=== PATIENT | female | born 1945 | race Caucasian/White ===

== ENCOUNTER 2024-11-10 09:56 | Outpatient (CLI) | payer MEDICARE, BC | END 2024-11-10 09:57 | disposition home or self-care (01) | LOC: SCSRAD 09:56 | PROVIDERS: ATTEND Student in an Organized Health Care Education/Training Program | DX: R05.3 Chronic cough (principal) | CPT/HCPCS: 71046 ==

== ENCOUNTER 2025-06-15 14:33 | Outpatient (CLI) | payer MEDICARE, BC | END 2025-06-15 14:34 | disposition home or self-care (01) | LOC: SCSMRI 14:33 | PROVIDERS: ATTEND Physician Assistant | DX: M51.16 Intervertebral disc disorders with radiculopathy, lumbar region (principal); M47.26 Other spondylosis with radiculopathy, lumbar region; M43.16 Spondylolisthesis, lumbar region; M41.9 Scoliosis, unspecified; Z98.890 Other specified postprocedural states | CPT/HCPCS: 72148 ==

== ENCOUNTER 2025-07-26 14:30 | Outpatient (CLI) | payer MEDICARE, BC | END 2025-07-26 14:31 | disposition home or self-care (01) | LOC: SCSRAD 14:30 | PROVIDERS: ATTEND Student in an Organized Health Care Education/Training Program | DX: S22.41XD Multiple fractures of ribs, right side, subsequent encounter for fracture with routine healing (principal); S62.346D Nondisplaced fracture of base of fifth metacarpal bone, right hand, subsequent encounter for fracture with routine healing ==